=== PATIENT | female | born 1970 | race American Indian/Alaskan Native ===

== ENCOUNTER 2019-06-12 11:14 | Emergency (ER) | payer OTHER ==
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
[2019-06-12 11:50] VITALS: BP 159/77
[2019-06-12] MEDS ORDERED: FLEXERIL PO ONE (13:27)
[2019-06-12] MEDS ORDERED: IBUPROFEN PO ONE (13:27)
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
== END 2019-06-12 14:37 | disposition home or self-care (01) ==
LOC: ED 11:14
DX: M54.2 Cervicalgia (principal); M54.9 Dorsalgia, unspecified; M79.641 Pain in right hand; I10 Essential (primary) hypertension; Z79.899 Other long term (current) drug therapy; Z88.8 Allergy status to other drugs, medicaments and biological substances; Z91.013 Allergy to seafood; V89.2XXA Person injured in unspecified motor-vehicle accident, traffic, initial encounter; Y93.89 Activity, other specified; Y92.488 Other paved roadways as the place of occurrence of the external cause; Y99.8 Other external cause status
CPT/HCPCS: 71046; 72040; 72100; 93005; 93010; 99283